=== PATIENT | female | born 1995 | race African-American/Black ===

== ENCOUNTER 2022-03-01 21:18 | Inpatient (IN) ==
[2022-03-01] MEDS ORDERED: ONDANSETRON 4 MG/2 ML VIAL IV PRN (21:38)
[2022-03-01] MEDS ORDERED: LACTATED RINGERS 250 ML IV ONE (21:38)
[2022-03-01] MEDS ORDERED: TRANEXAMIC ACID 1,000 MG in SODIUM CHLORIDE 0.9% 100 ML IV PRN (21:38)
[2022-03-01] MEDS ORDERED: BUTORPHANOL 2 MG/ML VIAL IV PRN (21:38)
[2022-03-01] MEDS ORDERED: OXYTOCIN/LR 20 UNIT/1,000 ML BAG IV ONE (21:38)
[2022-03-01] MEDS ORDERED: LACTATED RINGERS 500 ML IV PRN (21:38)
[2022-03-01] MEDS ORDERED: CARBOPROST TROMETHAMINE 250 MCG/ML AMP IM PRN (21:38)
[2022-03-01] MEDS ORDERED: METHYLERGONOVINE 0.2 MG/1 ML AMP IM PRN (21:38)
[2022-03-01] MEDS ORDERED: MEPERIDINE 50 MG/1 ML VIAL IV PRN (21:38)
[2022-03-01] MEDS ORDERED: miSOPROStoL 200 MCG TABLET RECTAL PRN (21:38)
[2022-03-01] MEDS: LACTATED RINGERS 1,000 ML IV SCH (22:30)
[2022-03-01 22:50] LABS: Basophils % 0.5 % (0.0-0.8); Eosinophils # 0.2 10*3/uL (0.0-0.87); Eosinophils % 2.8 % (0.00-10.9); Hemoglobin 9.5 GM/DL (12.0-16.0); Immature Granulocytes % 1.6 %; Immature Granulocytes Absolute 0.13 #; Lymphocytes # 1.4 10*3/uL (1.4-4.0); Lymphocytes % 17.4 % (21.3-54.2); Mean Corpuscular HGB Conc 29.1 GM/DL (32-36); Mean Corpuscular Volume 73.3 FL (87-102); Mean Platelet Volume 11.5 FL (9.6-12.0); Monocytes # 0.9 10*3/uL (0.11-0.8); Monocytes % 10.9 % (1.7-12.7); NRBC # 0.04 10*3/uL; Neutrophils % 66.8 % (38.7-73.9); Platelet Count 240 T/CUMM (130-400); Red Blood Count 4.45 MC/CUMM (3.8-5.5); White Blood Count 8.1 T/CUMM (4-12)
[2022-03-01] MEDS ORDERED: AMPICILLIN INJ 2,000 MG in SODIUM CHLORIDE 0.9% 100 ML IV ONE (23:14)
[2022-03-01 23:15] LABS: Hematocrit 32.6 VOL% (35.7-47.0)
[2022-03-02] MEDS: AMPICILLIN INJ 1,000 MG in SODIUM CHLORIDE 0.9% 100 ML IV SCH ×4 (04:18→15:39)
[2022-03-02] MEDS: LACTATED RINGERS 1,000 ML IV SCH (06:19)
[2022-03-02] MEDS ORDERED: OXYTOCIN/LR 20 UNIT/1,000 ML BAG IV SCH (08:00)
[2022-03-02] MEDS ORDERED: CITRIC ACID/SODIUM CITRATE 30 ML UDCUP PO ONE (09:22)
[2022-03-02] MEDS ORDERED: FAMOTIDINE 20 MG/2 ML VIAL IV ONE (09:22)
[2022-03-02] MEDS ORDERED: LACTATED RINGERS 1,000 ML IV ONE (09:22)
[2022-03-02] MEDS ORDERED: ePHEDrine 50 MG/ML VIAL IV PRN (09:22)
[2022-03-02] MEDS ORDERED: NALOXONE 0.4 MG/ML VIAL IV PRN (09:22)
[2022-03-02] MEDS ORDERED: fentaNYL 2 MCG/ROPIV 0.2% EPID 100 ML EPIDURAL SCH (09:30)
[2022-03-02 11:24] LABS: Bilirubin,Urine Negative (Negative); Blood, Urine Negative (Negative); Glucose,Urine (UA) Negative (Negative); Ketones,Urine Negative (Negative); Mucus,Urine Occasional /LPF (Occasional); Nitrite,Urine Negative (Negative); Protein,Urine Negative (Negative); RBC,Urine 1 /HPF (0-4); Urine Appearance Clear (Clear); Urine Color Yellow (Yellow); Urine Urobilinogen 0.2 eU/dL (<2.0); Urine pH 7.5 (4.5-8.0)
[2022-03-02 15:19] LABS: Cord Arterial Blood HCO3 19.2 MMOL/L
[2022-03-02 15:22] LABS: Cord Venous Blood HCO3 21.2 MMOL/L; Cord Venous Blood PCO2 44.4 MMHG
[2022-03-02] MEDS ORDERED: DIPH/TET/ACEL PERT BOOSTER VACCINE 0.5 ML VIAL IM ONE (17:18)
[2022-03-02] MEDS ORDERED: RHO(D) IMMUNE GLOBULIN 300 MCG SYRINGE IM ONE (17:18)
[2022-03-02] MEDS ORDERED: BISACODYL 10 MG SUPP RECTAL PRN (17:18)
[2022-03-02] MEDS ORDERED: HYDROCORTISONE 2.5% RECTAL CREAM 30 GM TUBE TOP PRN (17:18)
[2022-03-02] MEDS ORDERED: OXYTOCIN/LR 20 UNIT/1,000 ML BAG IV ONE (17:18)
[2022-03-02] MEDS ORDERED: MEASLES/MUMPS/RUBELLA VACCINE 0.5 ML VIAL SUBCUT ONE (17:18)
[2022-03-02] MEDS ORDERED: ACETAMINOPHEN 325 MG TABLET PO PRN (17:18)
[2022-03-02] MEDS ORDERED: BENZOCAINE 20%/MENTHOL 0.5% SPRAY 56 GM CAN TOP PRN (17:18)
[2022-03-02] MEDS ORDERED: LANOLIN 50% CREAM 0.3 OZ TUBE TOP PRN (17:18)
[2022-03-02] MEDS ORDERED: WITCH HAZEL PADS 100/JAR TOP PRN (17:18)
[2022-03-02] MEDS ORDERED: oxyCODONE/ACETAMINOPHEN 5-325 MG TABLET PO PRN (17:18)
[2022-03-02] MEDS: DOCUSATE SODIUM 100 MG CAPSULE PO SCH (21:32)
[2022-03-02] MEDS: IBUPROFEN 800 MG TABLET PO PRN (21:38)
[2022-03-02] MEDS: oxyCODONE/ACETAMINOPHEN 5-325 MG TABLET PO PRN (21:39)
[2022-03-03 06:03] LABS: Basophils % 0.3 % (0.0-0.8); Eosinophils # 0.2 10*3/uL (0.0-0.87); Eosinophils % 2.2 % (0.00-10.9); Hematocrit 28.2 VOL% (35.7-47.0); Hemoglobin 8.1 GM/DL (12.0-16.0); Immature Granulocytes % 0.8 %; Immature Granulocytes Absolute 0.09 #; Lymphocytes # 1.6 10*3/uL (1.4-4.0); Lymphocytes % 14.9 % (21.3-54.2); Mean Corpuscular HGB Conc 28.7 GM/DL (32-36); Mean Corpuscular Volume 74.2 FL (87-102); Mean Platelet Volume 11.7 FL (9.6-12.0); Monocytes # 1.1 10*3/uL (0.11-0.8); Monocytes % 10.5 % (1.7-12.7); NRBC # 0.02 10*3/uL; Neutrophils % 71.3 % (38.7-73.9); Platelet Count 232 T/CUMM (130-400); Red Cell Distribution Width 20.6 % (9.3-17.3); White Blood Count 10.7 T/CUMM (4-12)
[2022-03-03 06:27] LABS: Anisocytosis 1+; Hypochromia 1+; Microcytosis 1+; Ovalocytes Few
[2022-03-03 06:28] LABS: Platelet Estimate Normal; Polychromasia Slight
[2022-03-03] MEDS: DOCUSATE SODIUM 100 MG CAPSULE PO SCH ×2 (09:58→21:36)
[2022-03-03] MEDS: FERROUS SULFATE 325 MG TABLET PO SCH ×2 (09:58→21:36)
[2022-03-03] MEDS: oxyCODONE/ACETAMINOPHEN 5-325 MG TABLET PO PRN (16:15)
[2022-03-03] MEDS: IBUPROFEN 800 MG TABLET PO PRN (16:16)
[2022-03-04 08:39] VITALS: BP 167/77
[2022-03-04] MEDS: DOCUSATE SODIUM 100 MG CAPSULE PO SCH (08:42)
[2022-03-04] MEDS: FERROUS SULFATE 325 MG TABLET PO SCH (08:42)
== END 2022-03-04 11:42 | disposition home or self-care (01) | DRG 560 ==
LOC: N.LDOUT 21:18 → N.LD 21:22 → N.OB 03-02 18:15
PROVIDERS: ADMIT Obstetrics & Gynecology; ATTEND Obstetrics & Gynecology